=== PATIENT | male | born 1950 | race Caucasian/White ===

== ENCOUNTER 2025-07-15 14:35 | Outpatient (AMB) | payer MEDICARE, SELFPAY ==
--- NOTE | 2025-07-15 14:37 | A.OFFPC_ITS ---
Vital Signs 07/15/25 14:45 Height 5 ft 11.26 in Weight 197 lb BMI 27.3 BP 146/72 H Blood Pressure Location Lt brachial Position Sitting Respiration 14 Pulse 55 Pulse Source Pulse Oximeter Temp 98.1 F Temp Source Oral Pulse Oximetry (%) 99 Oxygen Delivery Method Room Air Intake Visit Reasons: est care Intake Note: New patient visit Sample Patternmaker Required: No Allergies acetaminophen (From Percocet) Allergy (Mild, Verified 07/15/25 14:40) hot flashes oxycodone (From Percocet) Allergy (Mild, Verified 07/15/25 14:40) hot flashes Tobacco use date assessed: 07/15/25 Fall risk assessment: No Falls in past year Last assessed Fall Risk: 07/15/25 Dental Screening Dental Screen Date: 07/15/25 Did you have a dental visit in the last 12 months?: Yes Did you have a dental problem in the last 6 months where you did not have access to dental care?: No Was dental information given to patient?: Patient has dentist HPI HPI Comments History of Present Illness Details 74 year old male with a past medical his tory of of hyperlipidemia, allergies, agent orange exposure, severe LE neuropathy, RBBB, colon polyps presenting to [facility] care. Transfer from [facility] Dr Murray. Also followed at the [facility] . Has had labs there Neuro: Chronic lower extremity neuropathy. His feet are absolutely on fire. Has been going to [facility] for acupuncture. Had some red light therapy. 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 He is on gabapentin, carbamazepine. [facility] but he was constipated for four days and he does not want to be taking daily GI meds. CV: On lipitor 40mg daily Insomnia: mostly secondary to pain. Patient quit smoked age 21. Had screening for AAA Colonoscopy ~2022 ROS CONSTITUTIONAL: Denies weight loss, fever and chills. HEENT: Denies changes in vision and hearing. RESPIRATORY: Denies SOB and cough. CV: Denies palpitations and CP GI: Denies abdominal pain, nausea, vomiting and diarrhea. : Denies dysuria and urinary frequency. MSK: Denies new myalgia and joint pain. SKIN: Denies rash and pruritus. NEUROLOGICAL: see HPI PSYCHIATRIC: Denies recent changes in mood. PHYSICAL EXAM: GENERAL: Alert and oriented x 3. NAD EYES: EOMI. Anicteric. HENT: Moist mucous membranes. No scleral icterus. No cervical lymphadenopathy. LUNGS: Clear to auscultation bilaterally. CARDIOVASCULAR: Regular rate and rhythm. No murmur. No JVD. ABDOMEN: Soft, non-tender +bs EXTREMITIES: No edema. Non-tender. SKIN: No rashes or lesions. Warm. NEUROLOGIC: No focal neurological deficits. CN II-XII grossly intact PSYCHIATRIC: Cooperative. Appropriate mood and affect [facility] Social History Housing: House Patient Tobacco Use Status: Former Tobacco user Years Smoked: 4 e-Cigarette/Vaping Use: Never Used Second Hand Smoke Exposure: No service: Yes Current occupational status: retired Cognitive needs: No Hearing needs: Yes (partial hearing loss) Vision needs: No Questionnaire PHQ-9 Over the last 2 weeks, how often have you been bothered by any of the following problems? 1. Little interest or pleasure in doing things: not at all 2. Feeling down, depressed, or hopeless: not at all 3. Trouble falling or staying asleep, or sleeping too much: not at all 4. Feeling tired or having little energy: not at all 5. Poor appetite or overeating: not at all 6. Feeling bad about yourself - or that you are a failure or have let yourself or your family down: not at all 7. Trouble concentrating on things, such as reading the newspaper or watching television: not at all 8. Moving or speaking so slowly that other people could have noticed. Or the opposite - being so fidgety or restless that you have been moving around a lot more than usual: not at all 9. Thoughts that you would be better off or of hurting yourself in some way: not at all Total score: 0 Depression Screening Interpretation: Negative Depression Screening Done: Yes 19901 - PHQ-9 Billing: Yes Source: Developed by Drs. Johnathan Harry, Josefa Delong, Ken Nelson and colleagues, with an educational louisa from [employer]. Thrive Questionnaire I am a: Patient What is your living situation today?: I have a steady place to live Within the past 12 months, did the food you bought not last and you didn't have the money to get more?: Never true Within the past 12 months, did you worry whether your food would run out before you got money to buy more?: Never true Do you have trouble paying for medicines?: No Do you have trouble getting transportation to medical appointments?: No Do you have trouble paying your heating and electricity bill?: No Do you have trouble taking care of your child, family member or friend?: No Do you have trouble with day-to-day activities such as bathing, preparing meals, shopping, managing finances, etc.?: No Are you currently unemployed and looking for a job?: No Are you interested in more education?: No Please select the resources that you would like help with: None Currently or been in a relationship where the following occur: No concerns reported THRIVE Score: 0 AUDIT C Alcohol Use Questionnaire (AUDIT-C) 1. How often do you have a drink containing alcohol?: 2-3 times a week 2. How many drinks containing alcohol do you have on a typical day when you are drinking?: 1 or 2 3. How often do you have six or more drinks on one occasion?: Never Total Score: 3 UZIEL-7 AMB Questionnaire UZIEL-7 Feeling nervous, anxious, or on edge: 1 = Several days Not being able to stop or control worryin = Not at all Worrying too much about different things: 0 = Not at all Trouble relaxin = Several days Being so restless that it is hard to sit still: 0 = Not at all Becoming easily annoyed or irritable: 3 = Nearly every day Feeling afraid as if something awful might happen: 0 = Not at all Total UZIEL-7 score (0-4 normal; 5-9 mild; 10-14 moderate; 15-21 severe): 5 Source: Developed by Drs. Johnathan Harry, Josefa Delong, Ken Nelson and colleagues, with an educational louisa from [employer]. Physical exam (Primary Care) Vital Signs: Last Vital Signs Temp 98.1 F 07/15/25 14:45 Pulse 55 07/15/25 14:45 Resp 14 07/15/25 14:45 BP 146/72 H 07/15/25 14:45 Pulse Ox 99 07/15/25 14:45 Oxygen Delivery Method Room Air 07/15/25 14:45 BMI result Body Mass Index 27.3 Tobacco/Smoking Status: Tobacco use Status Tobacco use date assessed 07/15/25 07/15/25 14:47 Patient Tobacco Use Status Former Tobacco user 07/15/25 14:47 e-Cigarette/Vaping Use Never Used 07/15/25 14:47 PHQ-9: PHQ-9 Score PHQ-9: Total score 0 07/15/25 14:54 Depression Screening Interpretation: Negative Currently or been in a relationship where the following occur: No concerns reported Coding Level of Care Code New Pt Level 4 (12359) Diagnoses Encounter to establish care Z76.89 Hyperlipidemia, unspecified hyperlipidemia type E78.5 Hyperlipidemia type: unspecified Peripheral polyneuropathy G62.9 Peripheral neuropathy type: polyneuropathy, unspecified Agent orange exposure Z77.098 Insomnia, unspecified type G47.00 Insomnia type: unspecified Additional Codes PHQ-9 - 24068 - PHQ-9 Billing: Yes ([id number]) Assessment & Plan Assessment & Plan (1) Encounter to establish care: Code(s): Z76.89 - Persons encountering health services in other specified circumstances (2) Hyperlipidemia: Code(s): E78.5 - Hyperlipidemia, unspecified Category: Medical Qualifiers: Hyperlipidemia type: unspecified Qualified Code(s): E78.5 - Hyperlipidemia, unspecified (3) Peripheral neuropathy: Code(s): G62.9 - Polyneuropathy, unspecified Category: Medical Qualifiers: Peripheral neuropathy type: polyneuropathy, unspecified Qualified Code(s): G62.9 - Polyneuropathy, unspecified (4) Agent orange exposure: Code(s): Z77.098 - Contact with and (suspected) exposure to other hazardous, chiefly nonmedicinal, chemicals Category: Medical (5) Insomnia: Code(s): G47.00 - Insomnia, unspecified Category: Medical Qualifiers: Insomnia type: unspecified Qualified Code(s): G47.00 - Insomnia, unspecified Plan 74 year old male presenting to establish care. Past medical, surgical, social reviewed neuropathy-trial additional baclofen at bed advised [facility]-on statin Medications: New baclofen 10 - 20 mg (1 - 2 x 10 mg) PO BEDTIME 90 tabs 0RF lidocaine-prilocaine 2.5-2.5 % Apply a thick layer to the painful area of the feet bilaterally 1 appl topical BEDTIME 30 grams 3RF
[2025-07-15 14:45] VITALS: BP 146/72; PULSE 55; RESP 14; TEMP 36.7; O2SAT 99; BMI 27.3
--- OUTSIDE RECORDS SUMMARY | 2025-07-15 20:01 | XMS_ITS | Encounter Summary ---
Author Organization [facility] Address [address] [place] [address] Phone Care Team Providers Care Key Account Director Name Role Phone Dario Osorio Primary Care Provider +1- [phone] Encounter Details Date Type Department Care Team (Late st Contact Info) Description 06/14/2024 Procedure Pass [facility] Endoscopy Admitting Dept Virtual Department [address] [place] [address] Social History Tobacco Use Types Packs/Day Years Used Date Smoking Tobacco: Former Cigarettes Q uit: 1970 Smokeless Tobacco: Never Comments:teenager Alcohol Use Standard Drinks/Week Comments Yes 4 (1 standard drink = 0.6 oz pur e alcohol) Education Answer Date Recorded Are you interested in more education? Not on tay e 02/26/2023 Are you concerned about learning? Not on file 02/26/2023 No 02/26/2023 No 02/26/2023 Digital Access Answer Date Recorded No 03/26/2023 No 03/26/2023 Reliable internet access at home? Not on file 03/26/2023 Device with a working camera? Not on file Intimate Partner Violence Answer Date R ecorded Are you denied basic needs s uch as food, clothing, or medical care? No 06/13/2024 In the past 12 months have y ou been in a relationship with a person who hurts, threatens, or tries to control you? No 06/13/2024 Are you denied basic needs s uch as food, clothing, or medical care? No 06/13/2024 In the past 12 months have y ou been in a relationship with a person who hurts, threatens, or tries to control you? No 06/13/2024 Sex and Gender Information Value Date Recorded Sex Assigned at Not on file Legal Sex Male 3:06 PM EDT Gender Identity Not on file Sexual Orientation Not on file documented as of this encounter Plan of Treatment Not on file documented as of this encounter Visit Diagnoses Not on filedocumented in this encounter Care Teams Key Account Director Relationship Specialty Start Date End Date Dario Osorio PA [address] [place] [id number] PCP - General 03/26/21 documented as of this encounter Additional Source Comments The information contained in this document represents components of the legal health record. It is not the complete legal health record.[facility]
--- OUTSIDE RECORDS SUMMARY | 2025-07-15 20:01 | XMS_ITS | Clinical Summary ---
Author Organization [facility] Address [address] [facility] [address] [place] [address] Phone Care Team Providers Care Slitting Machine Feeder Name Role Phone Dario Osorio Primary Care Provider +1- [phone] Allergies Active Allergy Reactions Criticality Noted Date Comments Oxycodone-Acetaminophen 05/08/2021 Medications gabapentin (NEURONTIN) 600 MG tablet Take 600 mg by mouth 3 (three) times a day. Active atorvastatin (LIPITOR) 40 MG tablet Take 40 mg by mouth daily. Active ascorbic acid, vitamin C, (VITAMIN C) 500 MG tablet Take 500 mg by mouth daily. Active zinc 50 mg Tab tablet Take 50 mg by mouth daily. Active multivitamins-mi nerals-folic pvru-wlxgrrh-rss ein (COMPLETE SENIOR) 0.4-300-250 mg-mcg-mcg Tab Take 1 tablet by mouth daily. Active cholecalciferol (VITAMIN D3) 25 MCG (1,000 unit) tablet Take 1,000 Units by mouth daily. Active loratadine (CLARITIN) 10 mg tablet Take 10 mg by mouth daily. 12/05/2023 Active Social History Tobacco Use Types Packs/Day Years Used Date Smoking Tobacco: Former Cigarettes Q uit: 1970 Smokeless Tobacco: Never Tobacco Cessation:Counseling Given: Not Answered Comments:teenager Alcohol Use Standard Drinks/Week Comments Yes [...] on file Sexual Orientation Not on file Last Filed Vital Signs Vital Sign Reading Time Taken Comments Blood Pressure 127/65 06/14/2024 9:20 AM EDT Pulse 52 06/14/2024 9:20 AM EDT Temperature 36.7 C (98 F) 06/14/2024 9:00 AM EDT Respiratory Rate 10 06/14/2024 9:20 AM EDT Oxygen Saturation 100% 06/14/2024 9:20 AM EDT Inhaled Oxygen Concentration - - Weight 89.8 kg (198 lb) 06/13/2024 8:30 AM EDT Height 188 cm (6' 2 ) 06/13/2024 8:30 AM EDT Body Mass Index 25.42 06/13/2024 8:30 AM EDT Plan of Treatment Health Maintenance Due Date Last Done Comments LIPID PANEL 1948 DEPRESSION SCREENING 1960 SMOKING Hx and SMOKELESS TOBACCO SCREENING 1961 HEPATITIS C SCREENING 1966 PNEUMOCOCCAL VACCINES (50+ years) (2 of 2 - PPSV23) 05/09/2020 05/09/2019 RSV VACCINE (1 - 1-dose 75+ series) 2023 INFLUENZA VACCINE (#1) 2025 3, 07/08/2023, 2022, Additional history exists COVID-19 VACCINE ( season) 2025 11/19/2021, 01/30/2021, 01/02/2021 Adult Td,Tdap Booster 06/15/2033 06/15/2023 , 04/02/2022, 07/27/2011 HEPATITIS A VACCINES Aged Out 05/27/2017, 04/28/2017, 03/20/2014 No longer eligible based on patient's age to complete this topic ZOSTER VACCINES Completed 08/12/2021, 05/31, 07/27/2011 HIB VACCINES Aged Out No longer eligi ble based on patient's age to complete this topic MENINGOCOCCAL VACCINES (ACWY) Aged Out No longer eligible based on patient's age to complete this topic MENINGOCOCCAL VACCINES (B) Aged Out N o longer eligible based on patient's age to complete this topic Medical Devices Not on file Insurance [facility] [place] [address] [place] [address] [place] [address] [facility] Care Teams Slitting Machine Feeder Relationship Specialty Start Date End Date Dario Osorio PA [address] [place] [id number] PCP - General 03/26/21 Additional Source Comments The information contained in this document represents components of the legal health record. It is not the complete legal health record.[facility]
--- OUTSIDE RECORDS SUMMARY | 2025-07-15 20:01 | XMS_ITS | Encounter Summary ---
Author Organization [facility] Address [address] [place] [phone] Phone Care Team Providers Care Manager Universal Name Role Phone Dario Osorio Primary Care Provider +1- [phone] Encounter Details Date Type Department Care Team (Late st Contact Info) Description 05/12/2021 Procedure Pass [facility] Endoscopy Admitting Dept Virtual Department [address] [place] [address] Social History Tobacco Use Types Packs/Day Years Used Date Smoking Tobacco: Former Cigarettes Q uit: 1970 Smokeless Tobacco: Never Comments:teenager Alcohol Use Standard Drinks/Week Comments Yes 4 (1 standard drink = 0.6 oz pur e alcohol) Sex and Gender Information Value Date Recorded Sex Assigned at Not on file Legal Sex Male 3:06 PM EDT Gender Identity Not on file Sexual Orientation Not on file documented as of this encounter Plan of Treatment Not on file documented as of this encounter Visit Diagnoses Not on filedocumented in this encounter Care Teams Manager Universal Relationship Specialty Start Date End Date Dario Osorio PA [address] [place] [phone] PCP - General 03/26/21 documented as of this encounter Additional Source Comments The information contained in this document represents components of the legal health record. It is not the complete legal health record.[facility]
== END 2025-07-15 15:24 | disposition home or self-care (01) ==
LOC: HO.HMCFM 14:36
PROVIDERS: PCP Internal Medicine; Visit Provider Internal Medicine
DX: Z76.89 Persons encountering health services in other specified circumstances (principal); E78.5 Hyperlipidemia, unspecified; G62.9 Polyneuropathy, unspecified; Z77.098 Contact with and (suspected) exposure to other hazardous, chiefly nonmedicinal, chemicals; G47.00 Insomnia, unspecified

== ENCOUNTER → 2025-07-15 14:35 | Outpatient (BNVA) | payer MEDICARE, SELFPAY | PROVIDERS: PCP Internal Medicine; Visit Provider Internal Medicine | DX: Z76.89 Persons encountering health services in other specified circumstances (principal); E78.5 Hyperlipidemia, unspecified; G62.9 Polyneuropathy, unspecified; G47.00 Insomnia, unspecified; Z77.098 Contact with and (suspected) exposure to other hazardous, chiefly nonmedicinal, chemicals | CPT/HCPCS: 96127; 99202 ==